=== PATIENT | female | born 1965 | race Caucasian/White ===

== ENCOUNTER 2019-09-13 08:34 | Day surgery (SDC) | payer BC ==
[~2019-09-13 08:34] MED LIST: LACTATED RINGERS 1,000 ML IV SCH; LIDOCAINE 1% (10MG/ML) FOR IV START INTRADERMA PRN
[2019-09-13 09:27] VITALS: BMI 30.9
[2019-09-13] MEDS ORDERED: PROPOFOL 10 MG/ML 20 ML VIAL IV ONE (09:35)
--- NOTE | 2019-09-13 09:57 | P.PCN ---
Date of Procedure: 09/13/19 Procedure(s) Performed: BRIEF HISTORY: Patient is a 54-year-old pleasant female scheduled for an elective colonoscopy as a part of screening for colorectal neoplasia. PROCEDURE PERFORMED: Colonoscopy with snare polypectomy PREOPERATIVE DIAGNOSIS: Screening for colon cancer. IV sedation per Anesthesia. PROCEDURE: After informed consent was obtained, the patient, was brought into the endoscopy unit. IV sedation was administered by Anesthesia under continuous monitoring. Digital rectal examination was normal. Initially the Olympus CF-160 flexible video colonoscope was then inserted in the rectum, gradually advanced into the cecum without any difficulty. Careful examination was performed as the scope was gradually being withdrawn. Ileocecal valve and the appendiceal orifice were visualized and appeared normal. Prep was excellent. Mucosa of the cecum, appeared normal. In the ascending colon there were 2 polyps measuring 1 cm and 1.5 cm in size both of which were removed by snare polypectomy. Rest of the ascending colon, transverse colon, descending colon, sigmoid colon, and rectum appeared normal. Retroflexion was performed in the rectum and no lesions were seen. The patient tolerated the procedure well. IMPRESSION: 1 cm and 1.5 cm broad-based ascending colon polyp status post polypectomy Rest of the colon appeared normal RECOMMENDATIONS: Findings of this examination were discussed with the patient as well as her family. She was advised to follow with the biopsy results. If the biopsy shows an adenoma she can have a repeat colonoscopy in 3 years.
[2019-09-13 10:44] VITALS: BP 123/76; PULSE 72; RESP 16; TEMP 97.2
== END 2019-09-13 10:36 | disposition home or self-care (01) ==
LOC: ORWHC2ENDO 08:34
PROVIDERS: ATTEND Internal Medicine Gastroenterology
DX: Z12.11 Encounter for screening for malignant neoplasm of colon (principal); K63.5 Polyp of colon
CPT/HCPCS: 88305; 45385; J2704

== ENCOUNTER → 2019-11-19 | Outpatient (CLI) | payer BC ==
--- NOTE | 2019-11-19 15:11 | MM ---
Reason for exam: clinical finding. History: Patient had first child at age 33. Family history of breast cancer in mother at age 81. Physical Findings: Nurse did not find any significant physical abnormalities on exam. MG 3D Diag Mammo W/Cad WINSOME Bilateral CC and MLO view(s) were taken. XCCL view(s) were taken of the right breast. LM and spot compression CC view(s) were taken of the left breast. The breast tissue is heterogeneously dense. This may lower the sensitivity of mammography. There is no discrete abnormality. Less than 5mm circumscribed low density nodularity upper outer quadrant right breast suggestive of a benign cyst. Central lateral and posterior asymmetric density left breast does not persist on additional views. These results were verbally communicated with the patient and result sheet given to the patient on 11/19/19. ASSESSMENT: Negative, BI-RAD 1 RECOMMENDATION: Routine screening mammogram of both breasts in 1 year. Manage on a clinical basis with regard to breast soreness.
--- NOTE | 2019-11-19 19:28 | BD ---
EXAMINATION TYPE: Axial Bone Density DATE OF EXAM: 11/19/2019 COMPARISON: NONE CLINICAL HISTORY: Postmenopausal screening Height: 63 Weight: 175.0 FRAX RISK QUESTIONS: Alcohol (3 or more units per day): no Family History (Parent hip fracture): no Glucocorticoids (More than 3mos): no (Ex: prednisone, prednisolone, methylprednisolone, dexamethasone, and hydrocortisone). History of Fracture in Adulthood: no Secondary Osteoporosis: 1. Type 1 Diabetes: no 2. Hyperthyroidism: no 3. Menopause before 45: no 4. Malnutrition: no 5. Chronic liver disease: no Rheumatoid Arthritis: no Current Tobacco Use: no RISK FACTORS HISTORY OF: Family History of Osteoporosis: no Active: yes Diet low in dairy products/other sources of calcium: yes If Premenopausal, do you have irregular periods: yes Lost more than 2 inches in height since high school: no MEDICATIONS: none Additional History: EXAM MEASUREMENTS: Bone mineral densitometry was performed using the [employer] System. Bone mineral density as measured about the Lumbar spine is: ----- L1-L4(G/cm2): 1.390 T Score Values are as follows: ----- L2: 0.5 ----- L3: 2.9 ----- L4: 3.1 ----- L1-L4: 1.8 Bone mineral density : baseline Bone mineral density about the R hip (g/cm2): 0.932 Bone mineral density about the L hip (g/cm2): 0.979 T Score values are as follows: -----R Neck: -0.8 -----L Neck: -0.4 -----R Total: 0.0 -----L Total: 0.2 Bone mineral density : baseline IMPRESSION: Normal (Values between +1 and -1 indicate normal bone mass). Consider repeating this study in 5 year s or sooner if there is some new clinical indication. NOTE: T-SCORE=SD OF THE YOUNG ADULT MEAN.
== END | disposition home or self-care (01) ==
LOC: RADMAMWWP 14:08
PROVIDERS: ATTEND Family Medicine
DX: N64.4 Mastodynia (principal); N89.9 Noninflammatory disorder of vagina, unspecified; N95.1 Menopausal and female climacteric states
CPT/HCPCS: 77062; 77066; 77080